=== PATIENT | female | born 2000 | race Caucasian/White ===

== ENCOUNTER 2019-04-02 21:24 | Emergency (ER) | payer MEDICAID ==
[~2019-04-02] VITALS: Ht 162.6 cm; Wt 74.8 kg
[2019-04-02 21:44] VITALS: BP 114/65
--- NOTE | 2019-04-02 21:48 | NUR ---
PT AMBULATES TO LOBBY WITH VISIBLE LIMP. BOYFRIEND ACCOMPANYING. AWAITING AVAILABLE BED.
--- NOTE | 2019-04-02 23:15 | NUR ---
19 Y/O FEMALE PRESENTS TO ED, C/O RIGHT ANKLE PAIN. PT STATES TWISTING ANKLE THIS AFTERNOON. LIMITED ROM. BILAT STRONG PEDAL PULSES. DENIES TAKING ANY MEDICATIONS FOR PAIN. PT VSS. ERMD AWARE. WILL CONTINUE TO MONITOR.
--- NOTE | 2019-04-02 23:19 | NUR ---
PT AMBULATED TO ER BED 02
[2019-04-02] MEDS ORDERED: IBUPROFEN 800 MG TAB PO ONE (23:30)
--- NOTE | 2019-04-02 23:33 | NUR ---
PT DISCHARGED WITH PAPERWORK. RX MOTRIN FOR PAIN. EDUCATED PT REGARDING MEDICATION AND S/E. EDUCATED PT REGARDING D/C DIAGNOSIS AND INSTRUCTIONS. PT VERBALIZED UNDERSTANDING OF TEACHING. TOLD PT TO FOLLOW UP WITH PCP AND WHEN TO RETURN TO ED. PT VSS. PROVIDED CRUTCHES. ALL QUESTIONS ANSWERED.
[2019-04-02 23:37] VITALS: BP 118/60
== END 2019-04-02 23:37 | disposition home or self-care (01) ==
LOC: MED 21:24
DX: S90.31XA Contusion of right foot, initial encounter (principal); X58.XXXA Exposure to other specified factors, initial encounter; Y92.89 Other specified places as the place of occurrence of the external cause; Y93.89 Activity, other specified; Y99.8 Other external cause status
CPT/HCPCS: 73630; 99283